=== PATIENT | female | born 1985 | race African-American/Black ===

== ENCOUNTER 2022-06-27 10:53 | Emergency (ER) | payer BC ==
[~2022-06-27] VITALS: Ht 170.2 cm; Wt 99.8 kg
[2022-06-27] MEDS ORDERED: MOBIC7.5 MG PO (11:42)
== END 2022-06-27 14:23 | disposition home or self-care (01) ==
LOC: ER 10:53
DX: H10.32 Unspecified acute conjunctivitis, left eye (principal)